=== PATIENT | female | born 1950 | race Caucasian/White ===

== ENCOUNTER 2021-11-24 20:39 | Emergency (ER) | payer MEDICARE ==
[~2021-11-24] VITALS: Ht 172.7 cm; Wt 88.0 kg
[2021-11-24 21:14] VITALS: BP 153/68
[2021-11-24 21:18] VITALS: BP 157/78
[2021-11-24 21:31] VITALS: BP 154/76
[2021-11-24 22:13] LABS: URINE BILIRUBIN - DIPSTICK NEGATIVE (NEGATIVE); URINE BLOOD DIPSTICK SMALL (NEGATIVE); URINE COLOR YELLOW; URINE GLUCOSE - DIPSTICK NEGATIVE (NEGATIVE); URINE KETONE NEGATIVE (NEGATIVE); URINE LEUK ESTERASE NEGATIVE (NEGATIVE); URINE NITRITE - DIPSTICK NEGATIVE (Negative); URINE PH 6.5 (4.5-8.0); URINE PROTEIN - DIPSTICK NEGATIVE (NEG-TRACE); URINE SPECIFIC GRAVITY 1.015; URINE UROBILINOGEN - DIPSTICK 0.2 E.U./dL (0.2)
[2021-11-24 22:13] LABS: HEMATOCRIT 36.2 % (37.0-47.0); HEMOGLOBIN 11.9 g/dl (12.0-16.0); IMMATURE GRANULOCYTES 0.2 % (0.0-5.0); MEAN CELL VOLUME 94.3 fL CALC (80.0-100.0); MEAN CORPUSCULAR HGB CONC 32.9 g/dL CAL (32.0-36.0); NEUT# 6.36 thou/uL (2.00-7.15); RED BLOOD COUNT 3.84 mill/uL (4.20-5.60); RED CELL DISTRI WIDTH 12.5 % (11.5-15.5)
[2021-11-24] MEDS ORDERED: METOPROLOL SUCC50 MG PO (22:14)
[2021-11-24] MEDS ORDERED: GABAPENTIN600 MG PO (22:14)
[2021-11-24] MEDS ORDERED: SIMVASTATIN40 MG PO (22:15)
[2021-11-24 22:20] LABS: URINE SQUAMOUS EPITHELIAL CELL FEW EPI/hpf (0-FEW)
[2021-11-24] MEDS ORDERED: ASPIRIN 81 LOW81 MG (22:20)
[2021-11-24] MEDS ORDERED: ALTACE5 M1 PO (22:20)
[2021-11-24] MEDS ORDERED: FUROSEMIDE20 MG PO (22:23)
[2021-11-24] MEDS ORDERED: BUDESONIDE3 MG (22:23)
[2021-11-24 22:25] LABS: ALBUMIN 4.1 g/dL (3.2-5.0); ALKALINE PHOSPHATASE 76 u/l (38-126); AMYLASE 84 u/l (30-110); ANION GAP 13 (6-22 (CALC)); BILIRUBIN, TOTAL 0.5 mg/dL (0.0-1.4); BUN 15 mg/dL (8-23); BUN/CREATININE RATIO 14 (12-20 (CALC)); CARBON DIOXIDE 29 mmol/l (22-30); CHLORIDE 103 mmol/l (95-108); GFR FOR AFR.AMER. > 60 ML/MIN (>=60 (CALC)); GFR OTHER RACES 55 ML/MIN (>=60 (CALC)); LIPASE 194 u/l (23-300); POTASSIUM 3.9 mmol/l (3.5-5.1); SGOT/AST 17 u/l (9-36); SODIUM 140 mmol/l (137-146); TOTAL PROTEIN 7.1 g/dL (6.3-8.2)
[2021-11-24] MEDS ORDERED: POTASSIUM CHLO10 MEQ PO (22:25)
[2021-11-24 22:31] VITALS: BP 160/75
[2021-11-24 22:37] LABS: MYOGLOBIN 26 ng/mL (0 - 62)
[2021-11-24] MEDS ORDERED: LORTAB 1010 MG PO (22:50)
[2021-11-24 22:58] VITALS: BP 153/72
[2021-11-24 23:28] VITALS: BP 153/72
[2021-11-25] MEDS ORDERED: ZOVIRAX52 TOP (06:48)
== END 2021-11-24 23:28 | disposition home or self-care (01) ==
LOC: ED 20:39
PROVIDERS: Emergency Medicine
DX: B02.29 Other postherpetic nervous system involvement (principal); I11.0 Hypertensive heart disease with heart failure; I50.9 Heart failure, unspecified; E11.9 Type 2 diabetes mellitus without complications; Z86.73 Personal history of transient ischemic attack (TIA), and cerebral infarction without residual deficits; Z86.718 Personal history of other venous thrombosis and embolism

== ENCOUNTER 2022-04-08 08:26 | Day surgery (SDC) | payer MEDICARE ==
[~2022-04-08] VITALS: Ht 175.3 cm; Wt 88.5 kg
[~2022-04-08 08:26] MED LIST: ALTACE5 M1 PO; ASPIRIN 81 LOW81 MG; BUDESONIDE3 MG; FUROSEMIDE20 MG PO; GABAPENTIN600 MG PO; LORTAB 1010 MG PO; METOPROLOL SUCC50 MG PO; POTASSIUM CHLO10 MEQ PO; SIMVASTATIN40 MG PO; ZOVIRAX52 TOP
[2022-04-08] MEDS ORDERED: ASPIRIN81 MG PO (08:41)
[2022-04-08 10:28] VITALS: BP 126/72
== END 2022-04-08 10:40 | disposition home or self-care (01) ==
LOC: ENDO 08:26 → ORM 08:26 → ENDO 10:40 → ORM 12:10
PROVIDERS: ATTEND Internal Medicine Gastroenterology
PROC: 0DB98ZX Excision of Duodenum, Via Natural or Artificial Opening Endoscopic, Diagnostic (ICD-10-PCS; principal; 2022-04-08)
PROC: 0DB78ZX Excision of Stomach, Pylorus, Via Natural or Artificial Opening Endoscopic, Diagnostic (ICD-10-PCS; 2022-04-08)
DX: K29.50 Unspecified chronic gastritis without bleeding (principal); K29.80 Duodenitis without bleeding; K22.2 Esophageal obstruction; K31.7 Polyp of stomach and duodenum; K44.9 Diaphragmatic hernia without obstruction or gangrene; K52.832 Lymphocytic colitis; N18.9 Chronic kidney disease, unspecified; D64.9 Anemia, unspecified; K57.30 Diverticulosis of large intestine without perforation or abscess without bleeding; Z79.899 Other long term (current) drug therapy